=== PATIENT | male | born 1960 | race African-American/Black ===

== ENCOUNTER 2018-03-29 22:40 | Emergency (ER) | payer OTHER ==
[2018-03-29 22:51] VITALS: BP 164/80; PULSE 99; TEMP 98.3; BMI 24.6
[2018-03-29] MEDS ORDERED: NAPROXEN 500 MG TABLET (FP) PO ONE (23:23)
[2018-03-29] MEDS ORDERED: diazePAM 5 MG TABLET PO ONE (23:23)
[2018-03-29] MEDS ORDERED: diazePAM 5 MG TABLET ONE (23:28)
[2018-03-29] MEDS ORDERED: NAPROXEN 500 MG TABLET (FP) ONE (23:28)
--- NOTE | 2018-03-29 23:41 | PDOC ---
History of Present Illness - General Chief Complaint: Pain Stated Complaint: FALL/INJURY Time Seen by Provider: 03/29/18 23:11 History Source: Patient Exam Limitations: No Limitations - History of Present Illness Initial Comments: 03/29/18 23:24 CHIEF COMPLAINT: Back pain HISTORY OF PRESENT ILLNESS: 57-year-old male with past medical history of HIV undetectable viral load and is unsure of CD4 count, colorectal cancer in remission presents for evaluation of lower back pain status post slip and fall on 5 concrete steps. Patient states he works with [employer] and while leaving for the day was walking down a flight of stairs reexposed to the ring causing him to slip and fall landing on his back. He denies striking his head or any loss of consciousness. Patient localizes his pain in his lower back and thoracic back. He denies any neurosensory deficits, incontinence of bladder or bowel, urinary retention, saddle anesthesia or foot drop. REVIEW OF SYSTEMS: GENERAL: Afebrile, denies any weakness RESPIRATORY: No cough, wheezing, or hemoptysis. CARDIAC: No chest pain or shortness of breath MUSCULOSKELETAL: Pain to generalized upper and lower back. No point tenderness. SKIN : No erythema, no bruising, no deformity. GI/: Denies any abdominal pain, no urinary difficulty, incontinence or urinary retention. RECTAL: Denies NEUROLOGICAL: Denies any numbness or tingling. No neurosensory deficits. PHYSICAL EXAM: GENERAL: The patient is awake, alert, and fully oriented, in no acute distress. RESPIRATORY: Lungs clear bilaterally, no rhonchi wheezes or crackles CARDIAC: S1-S2 audible, no murmur rub or gallop MUSCULOSKELETAL: No spinal point tenderness. No crepitus, step-offs or deformities present. No sensory deficit. Less than 2 second cap refill, +2 pedal pulses. No deficits to sensation or strength. No palpable muscle spasm. GI/: Abdomen soft, nontender, nondistended. No rebound tenderness. No masses palpable. RECTAL: Deferred patient with no neurological findings SKIN: Warm, Dry, normal turgor, no erythema, no edema no bruising. Past History - Past Medical History Allergies/Adverse Reactions: Allergies Allergy/AdvReac Type Severity Reaction Status Date / Time No Known Allergies Allergy Verified 03/29/18 22:48 Home Medications: Ambulatory Orders Omeprazole Magnesium [Prilosec (OTC)] 20 mg PO DAILY 11/02/12 Oxycodone HCl/Acetaminophen [Percocet 5-325 mg Tablet] 1 - 2 tab PO Q6H #20 tablet 02/10/12 Methocarbamol [Robaxin -] 1,500 mg PO Q8H #24 tablet 03/30/18 COPD: No Other medical history: Pt denies - Surgical History Appendectomy: Yes (colo rectal sx) - Suicide/Smoking/Psychosocial Hx Smoking Status: Yes Smoking History: Current some day smoker Have you smoked in the past 12 months: No Number of Cigarettes Smoked Daily: 3 Information on smoking cessation initiated: No Hx Alcohol Use: No Drug/Substance Use Hx: No *Physical Exam - Vital Signs Last Vital Signs Temp Pulse Resp BP Pulse Ox 98.3 F 99 H 18 164/80 99 03/29/18 22:49 03/29/18 22:49 03/29/18 22:49 03/29/18 22:49 03/29/18 22:49 Moderate Sedation - Procedure Monitoring Vital Signs: Procedure Monitoring Vital Signs Temperature 98.3 F 03/29/18 22:49 Pulse Rate 99 H 03/29/18 22:49 Respiratory Rate 18 03/29/18 22:49 Blood Pressure 164/80 03/29/18 22:49 O2 Sat by Pulse Oximetry (%) 99 03/29/18 22:49 ED Treatment Course - RADIOLOGY Radiology Studies Ordered: Category Date Time Status CERVICAL SPINE CT W/O CONTR [CT] Stat CT Scan 03/29/18 23:[address] W/O CONTRAST [CT] Stat CT Scan 03/29/18 23:[address] W/O CONTRAST [CT] Stat CT Scan 03/29/18 23:23 Ordered CHEST PA & LAT [RAD] Stat Radiology 03/29/18 23:23 Ordered Medical Decision Making - Medical Decision Making 03/29/18 23:41 A/P: 57-year-old male with HIV status post colorectal cancer with back pain status post slip and fall on concrete steps No bony tenderness, step-offs or crepitus or deformities noted to cervical, thoracic or lumbar spine. No palpable muscle spasms noted Neurovascular status intact Full sensation noted to all extremities Abrasion present to ulnar aspect of the left hand fifth digit no deformities present This patient does have a history of cancer of perform a CT of the spine to rule out any fractures from the fall. Chest x-ray to rule out any rib fractures or pneumothorax. Pneumothorax is less likely given normal breath sounds in all torres. Urinalysis to rule out renal injury. Valium 5 mg orally now Naprosyn 500 mg orally Boostrix Reassess 03/30/18 01:16 CT of the spine as read by imaging coupon redemption clerk: Vertebral bodies are normal with no fracture. Normal alignment noted. 03/30/18 02:17 Patient states adequate relief of pain after receiving Naprosyn and Valium. I' ll discharge the patient home with prescription for Naprosyn and Robaxin. Patient is to follow-up with his primary doctor for reevaluation within 1 week if symptoms do not resolve. *DC/Admit/Observation/Transfer Diagnosis at time of Disposition: Musculoskeletal back pain - Discharge Dispostion Disposition: HOME Condition at time of disposition: Stable Decision to Admit order: No - Prescriptions Prescriptions: Methocarbamol [Robaxin -] 1,500 mg PO Q8H #24 tablet - Referrals Referrals: ON STAFF,NOT [Primary Care Provider] - - Patient Instructions Additional Instructions: REST. Take naproxen as needed for pain. Follow manufacturers instructions for appropriate dosage. Robaxin 1500mg 3 times a day as needed for pain. Warm moist heat applied to your back may help alleviate pain. Return to emergency department for discoloration of the foot, numbness or tingling to the foot, worsening pain, or any other concerns. Thank you very much for choosing us to provide your emergent healthcare needs. - Post Discharge Activity Forms/Work/School Notes: Back to Work
[2018-03-30 01:53] LABS: URINE APPEARANCE CLEAR; URINE BILIRUBIN NEGATIVE (<2.0 mg/dL); URINE COLOR YELLOW; URINE GLUCOSE (UA) NEGATIVE (NEGATIVE); URINE KETONE TRACE (NEGATIVE); URINE LEUK ESTERASE NEGATIVE (NEGATIVE); URINE NITRITE NEGATIVE (NEGATIVE); URINE PROTEIN 1+ (NEGATIVE)
[2018-03-30 02:03] LABS: URINE BACTERIA RARE /hpf (NONE SEEN); URINE HYALINE CAST 1 /lpf; URINE MUCUS FEW
== END 2018-03-30 02:31 | disposition home or self-care (01) ==
LOC: JER 22:40
DX: M54.9 Dorsalgia, unspecified (principal); W10.8XXA Fall (on) (from) other stairs and steps, initial encounter; Y93.89 Activity, other specified; Y92.89 Other specified places as the place of occurrence of the external cause; Y99.0 Civilian activity done for income or pay; Z21 Asymptomatic human immunodeficiency virus [HIV] infection status; Z85.038 Personal history of other malignant neoplasm of large intestine
CPT/HCPCS: 71046-TC-FY; 72125-TC; 72128-TC; 72131-TC; 81003; 81015; 99283-25

== ENCOUNTER 2018-09-29 05:27 | Emergency (ER) | payer OTHER ==
[2018-09-29 05:37] VITALS: BMI 26.4
--- NOTE | 2018-09-29 06:06 | PDOC ---
Attending Attestation - Resident Resident Name: Shell Kumar - ED Attending Attestation I have performed the following: I have examined & evaluated the patient, The case was reviewed & discussed with the resident, I agree w/resident's findings & plan - HPI HPI: 09/29/18 06:03 Pt comes with right sided CP. - Physicial Exam PE: 09/29/18 06:04 Agree with resident exam. - Medical Decision Making 09/29/18 06:04 Labs pending. EKG NSR CXR pending 09/30/18 03:23 Pt was signed out to the day team
--- NOTE | 2018-09-29 06:13 | PDOC ---
History of Present Illness - General Chief Complaint: Chest Pain Stated Complaint: CHEST PAIN History Source: Patient Exam Limitations: No Limitations - History of Present Illness Initial Comments: 09/29/18 05:58 57 y/o M with PMHx of HIV (on Genvoya, Viral Load undectable, Unknown CD4 count) , Colorectal Ca (S/P Resection, Last chemo/rad 1 year ago), HTN, presents with chest pain. Patient says evening while going to sleep, he felt a 10/10 stabbing and cramping pain over his right chest just below the nipple. The pain then resolved and patient woke with a remaining soreness in the same area. Throughout the day monday, patient felt weakness and lightheadedness with decreased PO intake. Monday night, patient woke with a 8/10 stabbing right sided chest pain accompanied by diaphoresis. Patient denies any radiation and mentions the pain is not reproducible nor does it change with respiration. This is the first time he had this pain prompting him to visit the ED. Additionally he complins of SOB and constipation. Denies any rash in the area. Denies any recent trauma, travel, sick contacts or recent medication changes. Denies any Fevers, chills, Nausea, vomiting, Diarrhea, constipation, dysuria, visual changes, photophobia. PCP: Dr. Balderrama Meds: vosharee PMHx: As above PSHx: Left inguinal Hernia repair, Colorectal Ca Resection Allergies: NKDA Social: 1 pack per week tobacco use, Denies EtOH or drug use FHx: Father with Cardiac disease and CVA, Mother with Lupus Past History - Past Medical History Allergies/Adverse Reactions: Allergies Allergy/AdvReac Type Severity Reaction Status Date / Time No Known Allergies Allergy Verified 09/29/18 05:35 Home Medications: Ambulatory Orders Elviteg/Cob/Emtri/Tenof Alafen [Genvoya Tablet] 1 each PO HS 09/29/18 COPD: No - Surgical History Appendectomy: Yes (colo rectal sx) - Suicide/Smoking/Psychosocial Hx Smoking Status: Yes Smoking History: Never smoked Have you smoked in the past 12 months: No Number of Cigarettes Smoked Daily: 3 Information on smoking cessation initiated: No Hx Alcohol Use: No Drug/Substance Use Hx: No Review of Systems - Review of Systems Constitutional: No: Chills, Fever HEENTM: No: Blurred Vision, Double Vision Respiratory: Yes: Cough, Shortness of Breath Cardiac (ROS): Yes: Chest Pain. No: Palpitations ABD/GI: No: Constipated, Diarrhea, Nausea, Vomiting : No: Dysuria, Hematuria Neurological: No: Numbness, Tingling *Physical Exam - Vital Signs Last Vital Signs Temp Pulse Resp BP Pulse Ox 98.8 F 89 20 120/62 99 09/29/18 05:36 09/29/18 06:12 09/29/18 06:29 09/29/18 06:12 09/29/18 06:12 - Physical Exam General Appearance: Yes: Nourished, Appropriately Dressed HEENT: positive: EOMI, JV. negative: Pharyngeal Erythema, Tonsillar Exudate Neck: positive: Supple Respiratory/Chest: positive: Lungs Clear, Normal Breath Sounds. negative: Accessory Muscle Use, Crackles, Rhonchi, Wheezing Cardiovascular: positive: Regular Rhythm, Regular Rate, S1, S2. negative: Edema , JVD, Murmur Gastrointestinal/Abdominal: positive: Normal Bowel Sounds, Soft. 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 negative: Sensory Deficit Heart Score/ECG Review - History History: Slightly suspicious - Electrocardiogram EKG: Normal - Risk Factors Risk Factors Heart Score: Yes Hx Hypertension, Yes Smoking History Based on the list above the patient has:: 1-2 risk factors - Troponin Troponin: </= normal limit ED Treatment Course - LABORATORY CBC & Chemistry Diagram: 09/29/18 06:10 09/29/18 06:10 - ADDITIONAL ORDERS Additional order review: Laboratory Results 09/29/18 09/29/18 09/29/18 06:10 06:10 06:10 PT with INR 15.10 H INR 1.28 H Sodium 138 Potassium 4.3 Chloride 104 Carbon Dioxide 29 Anion Gap 5 L BUN 10.8 Creatinine 1.1 Est GFR (CKD-EPI)AfAm 86.52 Est GFR (CKD-EPI)NonAf 74.65 Random Glucose 113 H Calcium 8.7 Phosphorus 3.3 Magnesium 2.3 Total Bilirubin 0.7 AST 41 H ALT 45 Alkaline Phosphatase 104 Creatine Kinase 147 Troponin I < 0.02 Total Protein 7.7 Albumin 3.8 09/29/18 06:10 RBC 4.53 MCV 83.9 MCHC 33.8 RDW 13.7 MPV 7.2 L Neutrophils % 69.7 Lymphocytes % 18.2 Monocytes % 11.4 H Eosinophils % 0.3 Basophils % 0.4 - RADIOLOGY Radiology Studies Ordered: Category Date Time Status CHEST X-RAY PORTABLE* [RAD] Stat Radiology 09/29/18 05:55 Ordered Medical Decision Making - Medical Decision Making 09/29/18 06:13 57 y/o M with PMHx of HIV (on Genvoya, Viral Load undectable, Unknown CD4 count) , Colorectal Ca (S/P Resection, Last chemo/rad 1 year ago), HTN, presents with chest pain. Likely MSK, however will need to R/O ACS. Will Check EKG, CXR, CBC, CMP, Mag, Phos, INR, Trop. Give ASA 162mg. Ongoing assessment. 09/29/18 07:05 Sign out given to Dr. Roberson *DC/Admit/Observation/Transfer Diagnosis at time of Disposition: Chest pain Qualifiers: Chest pain type: unspecified Qualified Code(s): R07.9 - Chest pain, unspecified - Referrals - Patient Instructions - Post Discharge Activity
[2018-09-29 06:26] LABS: BASO % 0.4 % (0-2.0); EOS % 0.3 % (0-4.5); HEMOGLOBIN 12.8 GM/dL (11.7-16.9); LYMPH % 18.2 % (8-40); MCH 28.3 pg (25.7-33.7); MCHC 33.8 g/dl (32.0-35.9); MEAN CELL VOLUME 83.9 fl (80-96); MEAN PLT VOLUME 7.2 fl (7.5-11.1); MONO % 11.4 % (3.8-10.2); NEUT % 69.7 % (42.8-82.8); PLATELET COUNT 256 K/MM3 (134-434); RBC 4.53 M/mm3 (4.00-5.60); RDW 13.7 % (11.9-15.9); WHITE BLOOD COUNT 10.3 K/mm3 (4.0-10.0)
[2018-09-29 06:42] LABS: INR 1.28 (0.83-1.09); PROTHROMBIN TIME (PATIENT) 15.1 SEC (9.7-13.0)
[2018-09-29 06:52] LABS: ALBUMIN 3.8 g/dl (3.4-5.0); BILIRUBIN,TOTAL 0.7 mg/dL (0.2-1); BLOOD UREA NITROGEN 10.8 mg/dL (7-18); CALCIUM 8.7 mg/dL (8.5-10.1); CREATININE 1.1 mg/dL (0.55-1.3); MAGNESIUM 2.3 mg/dL (1.8-2.4); PHOSPHOROUS 3.3 mg/dL (2.5-4.9); POTASSIUM 4.3 mmol/L (3.5-5.1); TOT PROT 7.7 g/dl (6.4-8.2)
--- NOTE | 2018-09-29 07:19 | PDOC ---
*Physical Exam - Vital Signs Last Vital Signs Temp Pulse Resp BP Pulse Ox 98.8 F 89 20 120/62 99 09/29/18 05:36 09/29/18 06:12 09/29/18 06:29 09/29/18 06:12 09/29/18 06:12 ED Treatment Course - LABORATORY CBC & Chemistry Diagram: 09/29/18 06:10 09/29/18 06:10 - ADDITIONAL ORDERS Additional order review: Laboratory Results 09/29/18 09/29/18 09/29/18 06:10 06:10 06:10 PT with INR 15.10 H INR 1.28 H Sodium 138 Potassium 4.3 Chloride 104 Carbon Dioxide 29 Anion Gap 5 L BUN 10.8 Creatinine 1.1 Est GFR (CKD-EPI)AfAm 86.52 Est GFR (CKD-EPI)NonAf 74.65 Random Glucose 113 H Calcium 8.7 Phosphorus 3.3 Magnesium 2.3 Total Bilirubin 0.7 AST 41 H ALT 45 Alkaline Phosphatase 104 Creatine Kinase 147 Troponin I < 0.02 Total Protein 7.7 Albumin 3.8 09/29/18 06:10 RBC 4.53 MCV 83.9 MCHC 33.8 RDW 13.7 MPV 7.2 L Neutrophils % 69.7 Lymphocytes % 18.2 Monocytes % 11.4 H Eosinophils % 0.3 Basophils % 0.4 Medical Decision Making - Medical Decision Making 09/29/18 07:18 Pt signed out to me by Dr. Kumar. 57M who presents who chest pain, ruling out ACS with 2 troponins. First troponin is negative. Pending repeat troponin. 09/29/18 09:53 Repeat trop negative. Pt endorsed story of sharp R sided pain. D-dimer elevated , will CTA. 09/29/18 12:15 CTA shows no PE but shows R middle lobe infiltrate. Unknown CD4 count. Will give ceftriaxone and d/c with a z-pack. Pt aware. 09/29/18 12:18 CD4 count 408. Will give ceftriaxone and d/c with z-pack. Pt well appearing otherwise. *DC/Admit/Observation/Transfer Diagnosis at time of Disposition: Chest pain Qualifiers: Chest pain type: unspecified Qualified Code(s): R07.9 - Chest pain, unspecified Pneumonia Qualifiers: Pneumonia type: due to unspecified organism - Discharge Dispostion Disposition: HOME Condition at time of disposition: Stable Decision to Admit order: No - Prescriptions Prescriptions: Azithromycin [Zithromax 250mg Tablets -] 250 mg PO UTDICT #6 tab - Referrals Referrals: ON STAFF,NOT [Primary Care Provider] - - Patient Instructions Printed Discharge Instructions: Pneumonia-Adult Additional Instructions: Your ER visit is not complete until your follow up with your primary care physician. Please follow up with your primary care physician in 1-2 days. Please return to the ER if you have any signs or symptoms of chest pain, shortness of breath, uncontrollable fever, chills, nausea, vomiting, numbness, tingling, or weakness in any part of your body, changes in vision, or slurred speech. Please take your medications as prescribed. Please return to the ER if symptoms persist, worsen, or new symptoms arise. - Post Discharge Activity
[2018-09-29] MEDS ORDERED: SODIUM CHLORIDE 0.9% 1000 ML INFUS.BAG IV ONE (09:46)
[2018-09-29] MEDS ORDERED: ASPIRIN 81 MG CHEWABLE TABLETS ONE (09:57)
[2018-09-29] MEDS ORDERED: ASPIRIN COATED 81 MG TABLET.EC PO SCH (10:00)
--- NOTE | 2018-09-29 10:31 | EKG ---
Test Reason : Blood Pressure : / mmHG Vent. Rate : 096 BPM Atrial Rate : 096 BPM P-R Int : 152 ms QRS Dur : 102 ms QT Int : 340 ms P-R-T Axes : 015 -39 026 degrees QTc Int : 429 ms NORMAL SINUS RHYTHM LEFT AXIS DEVIATION ABNORMAL ECG NO PREVIOUS ECGS AVAILABLE Confirmed by AMELIE SHELTON MD ([id number]) on 09/29/2018 10:31:26 AM Referred By: Confirmed By:AMELIE SHELTON MD
[2018-09-29] MEDS ORDERED: CEFTRIAXONE 1,000 MG in DEXTROSE 5%-WATER - 50 ML IVPB ONE (12:15)
[2018-09-29] MEDS ORDERED: CEFTRIAXONE 1 GM/50 ML BAG ONE (12:18)
[2018-09-29] MEDS ORDERED: ACETAMINOPHEN 325 MG TABLET (FP) ONE (13:00)
[2018-09-29] MEDS ORDERED: ACETAMINOPHEN 325 MG TABLET (FP) PO ONE (13:01)
[2018-09-29 13:03] VITALS: BP 145/91; PULSE 86; TEMP 100.5
== END 2018-09-29 13:25 | disposition home or self-care (01) ==
LOC: JER 05:27
PROC: 3E03329 Introduction of Other Anti-infective into Peripheral Vein, Percutaneous Approach (ICD-10-PCS; principal; 2018-09-29)
PROC: 3E0337Z Introduction of Electrolytic and Water Balance Substance into Peripheral Vein, Percutaneous Approach (ICD-10-PCS; 2018-09-29)
DX: J18.9 Pneumonia, unspecified organism (principal); R07.9 Chest pain, unspecified; I10 Essential (primary) hypertension; Z85.038 Personal history of other malignant neoplasm of large intestine; Z85.048 Personal history of other malignant neoplasm of rectum, rectosigmoid junction, and anus; Z21 Asymptomatic human immunodeficiency virus [HIV] infection status
CPT/HCPCS: 36415; 71045-TC-FY; 71275-TC; 80053; 82550; 83735; 84100; 84484; 85025; 85379; 85610; 93005; 93010; 99285-25; J7030

== ENCOUNTER 2018-10-12 15:43 | Emergency (ER) | payer OTHER ==
--- NOTE | 2018-10-12 15:54 | PDOC ---
Rapid Medical Evaluation Time Seen by Provider: 10/12/18 15:52 Medical Evaluation: Allergies Allergy/AdvReac Type Severity Reaction Status Date / Time No Known Allergies Allergy Verified 09/29/18 05:35 10/12/18 15:53 HPI: hyperextended L wrist PE: no gross deficits ORDERS:x-ray Discharge Disposition - Diagnosis Left wrist pain - Referrals - Patient Instructions - Post Discharge Activity
[2018-10-12 15:56] VITALS: BP 119/85; PULSE 84; BMI 25.8
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
== END 2018-10-12 16:36 | disposition home or self-care (01) ==
LOC: JERFT 15:43
DX: M25.532 Pain in left wrist (principal); Y04.2XXA Assault by strike against or bumped into by another person, initial encounter; Y93.89 Activity, other specified; Y92.830 Public park as the place of occurrence of the external cause; Y99.0 Civilian activity done for income or pay
CPT/HCPCS: 73110-TC-LT-FY; 99281-25

== ENCOUNTER 2019-01-06 08:41 | Emergency (ER) | payer OTHER ==
[2019-01-06 08:57] VITALS: BP 158/92; PULSE 64; TEMP 98.3; BMI 26.7
[2019-01-06] MEDS ORDERED: ACETAMINOPHEN 325 MG TABLET (FP) PO ONE (10:09)
[2019-01-06] MEDS ORDERED: ACETAMINOPHEN 325 MG TABLET (FP) ONE (10:12)
[2019-01-06 10:17] LABS: BASO % 1.3 % (0-2.0); EOS % 0.4 % (0-4.5); HEMATOCRIT 38.6 % (35.4-49); HEMOGLOBIN 13.1 GM/dL (11.7-16.9); LYMPH % 42.1 % (8-40); MCH 28.6 pg (25.7-33.7); MCHC 33.8 g/dl (32.0-35.9); MEAN CELL VOLUME 84.4 fl (80-96); MONO % 7.5 % (3.8-10.2); NEUT % 48.7 % (42.8-82.8); PLATELET COUNT 261 K/MM3 (134-434); RBC 4.58 M/mm3 (4.00-5.60); RDW 14.6 % (11.9-15.9); WHITE BLOOD COUNT 5.3 K/mm3 (4.0-10.0)
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
[2019-01-06 10:31] LABS: URINE APPEARANCE CLEAR; URINE BILIRUBIN NEGATIVE (NEGATIVE); URINE COLOR YELLOW; URINE GLUCOSE (UA) NEGATIVE (NEGATIVE); URINE KETONE NEGATIVE (NEGATIVE); URINE LEUK ESTERASE NEGATIVE (NEGATIVE); URINE NITRITE NEGATIVE (NEGATIVE); URINE PROTEIN NEGATIVE (NEGATIVE); URINE UROBILINOGEN 0.2 mg/dL (0.2-1.0)
[2019-01-06 10:43] LABS: ALBUMIN 4.1 g/dl (3.4-5.0); BILIRUBIN,TOTAL 0.3 mg/dL (0.2-1); BLOOD UREA NITROGEN 14.6 mg/dL (7-18); CALCIUM 9.4 mg/dL (8.5-10.1); POTASSIUM 4.5 mmol/L (3.5-5.1); TOT PROT 7.4 g/dl (6.4-8.2)
== END 2019-01-06 12:24 | disposition home or self-care (01) ==
LOC: JER 08:41
DX: M54.5 Low back pain (principal); S20.212A Contusion of left front wall of thorax, initial encounter; M54.2 Cervicalgia; V86.59XA Driver of other special all-terrain or other off-road motor vehicle injured in nontraffic accident, initial encounter; Y92.488 Other paved roadways as the place of occurrence of the external cause; Y99.0 Civilian activity done for income or pay; Y93.89 Activity, other specified; I10 Essential (primary) hypertension
CPT/HCPCS: 36415; 70450-TC; 71260-TC; 72125-TC; 74177-TC; 80053; 81003; 85025; 99283-25

== ENCOUNTER 2019-04-28 18:03 | Emergency (ER) | payer OTHER ==
[2019-04-28 18:14] VITALS: BP 155/105; PULSE 80; TEMP 97.9; BMI 278.1
[2019-04-28] MEDS ORDERED: KETOROLAC TROMETHAMINE 30 MG/1 ML VIAL IM ONE (19:17)
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
[2019-04-28] MEDS ORDERED: KETOROLAC TROMETHAMINE 30 MG/1 ML VIAL ONE (20:05)
== END 2019-04-28 20:25 | disposition home or self-care (01) ==
LOC: JERFT 18:03
PROC: 3E0233Z Introduction of Anti-inflammatory into Muscle, Percutaneous Approach (ICD-10-PCS; principal; 2019-04-28)
DX: M54.5 Low back pain (principal); V89.2XXS Person injured in unspecified motor-vehicle accident, traffic, sequela; I10 Essential (primary) hypertension; Z21 Asymptomatic human immunodeficiency virus [HIV] infection status
CPT/HCPCS: 99282-25

== ENCOUNTER 2019-05-11 11:40 | Emergency (ER) | payer OTHER ==
[2019-05-11 12:00] VITALS: BP 147/96; PULSE 91; TEMP 98.1; BMI 28.7
[2019-05-11] MEDS ORDERED: IBUPROFEN 600 MG TABLET (FP) PO ONE ×2 (12:48→13:00)
--- NOTE | 2019-05-11 12:48 | PDOC ---
History of Present Illness - General Chief Complaint: Cold Symptoms Stated Complaint: FEVER/COLD SYMPTOMS Time Seen by Provider: 05/11/19 12:33 History Source: Patient Exam Limitations: No Limitations - History of Present Illness Initial Comments: 05/11/19 13:55 Chief complaint: Flu symptoms Patient is a 58-year-old male with HIV, on antivirals, undetectable levels who states he got sick on Monday at work, with runny nose and cough and fever. Patient has been taking care of himself at home. Last took Tylenol last night. Patient is starting to feel better but wanted to get checked because his partner has similar symptoms is much sicker and is being evaluated. Patient complaining of some rib pain with coughing GENERAL/CONSTITUTIONAL: No fever, weakness. dizziness HEAD, EYES, EARS, NOSE AND THROAT: No change in vision. No ear pain or discharge. No sore throat. + Runny nose CARDIOVASCULAR: No chest pain RESPIRATORY: No shortness of breath +cough GASTROINTESTINAL: No pain, nausea, vomiting, diarrhea or constipation GENITOURINARY: No dysuria MUSCULOSKELETAL: No neck or back pain SKIN: No rash NEUROLOGIC: No headache, vertigo, loss of consciousness, or loss of sensation. GENERAL: The patient is awake, alert, and fully oriented, in no acute distress. HEAD: Normal with no signs of trauma. EYES: Pupils equal, round and reactive to light, sclera anicteric, conjunctiva clear. ENT: pharynx: no erythema, no exudate, uvula midline NECK: supple CHEST: clear, nontender, rr ABD: soft, nontender BACK: no tenderness or signs of injury EXTREMITIES: Normal range of motion, no edema. NEUROLOGICAL: Normal speech, normal gait. SKIN: Warm, Dry Past History - Past Medical History Allergies/Adverse Reactions: Allergies Allergy/AdvReac Type Severity Reaction Status Date / Time No Known Allergies Allergy Verified 04/28/19 18:14 Home Medications: Ambulatory Orders Elviteg/Cob/Emtri/Tenof Alafen [Genvoya Tablet] 1 each PO HS 09/29/18 Omeprazole 20 mg PO DAILY 10/12/18 Methocarbamol [Robaxin -] 500 mg PO BID #14 tablet 01/06/19 Naproxen 500 mg PO BID PRN #20 tablet 01/06/19 Methylprednisolone [Medrol Dose Uday] 4 mg PO ASDIR #21 tablet 04/28/19 COPD: No HTN: Yes - Surgical History Appendectomy: Yes (colo rectal sx) - Psycho Social/Smoking Cessation Hx Smoking Status: Yes Smoking History: Never smoked Have you smoked in the past 12 months: No Number of Cigarettes Smoked Daily: 3 Hx Alcohol Use: No Drug/Substance Use Hx: No *Physical Exam - Vital Signs Last Vital Signs Temp Pulse Resp BP Pulse Ox 98.1 F 91 H 19 147/96 97 05/11/19 11:55 05/11/19 11:55 05/11/19 11:55 05/11/19 11:55 05/11/19 11:55 Medical Decision Making - Medical Decision Making 05/11/19 13:57 58-year-old male with history of HIV, on antivirals, with undetectable levels with flulike symptoms since Monday, getting better. Has pain with coughing. Exam is non-concerning. Send flu swab on patient's partner who is sicker than he is., Patient is out of the window for Tamiflu. Will give Motrin for the pain. Discussed issues, findings, results, applicable medications and treatments and follow-up. All these were understood and all questions were answered Discharge - Discharge Information Problems reviewed: Yes Clinical Impression/Diagnosis: Flu-like symptoms Condition: Stable Disposition: HOME - Admission No - Follow up/Referral Referrals: ON STAFF,NOT [Primary Care Provider] - - Patient Discharge Instructions Patient Printed Discharge Instructions: DI for Viral Upper Respiratory Infection -- Adult Additional Instructions: Drink 2-3 L of water daily Take Tylenol 650 mg every 4 hours or Motrin 600 mg every 6 hours for fever and pain Return to the nearest ER if short of breath, unable to swallow or feeling sicker Followup with your doctor in one to 2 days - Post Discharge Activity
== END 2019-05-11 14:01 | disposition home or self-care (01) ==
LOC: JERFT 11:40 → JER 11:40 → JERFT 14:01
DX: J11.1 Influenza due to unidentified influenza virus with other respiratory manifestations (principal); Z21 Asymptomatic human immunodeficiency virus [HIV] infection status
CPT/HCPCS: 99281-25